=== PATIENT | male | born 1975 | race Hispanic/Latino ===

== ENCOUNTER 2020-08-29 23:10 | Inpatient (IN) | payer BC ==
[~2020-08-29] VITALS: Ht 167.6 cm; Wt 81.3 kg
[~2020-08-29 23:10] MED LIST: AEC81 PO; ATOR40TA71 PO; ERGO500014 PO; LEVO25TA54 PO; LOSA50TA64 PO; METO25TA6 PO; NITR0.4T SL
[2020-08-29] MEDS ORDERED: METOCLOPRAMIDE 10 MG/2 ML VIAL ONE (23:44)
[2020-08-29 23:51] LABS: BASOPHILS % (AUTO) 0.3 % (0.0-5.0); HEMATOCRIT 40.8 % (42-54); MEAN CORPUSCULAR HEMOGLOBIN 29.9 pg (27.0-33.0); MEAN CORPUSCULAR VOLUME 85.4 fL (79-99); MONOCYTES % (AUTO) 6.9 % (3.0-13.0); NEUTROPHILS % (AUTO) 61.5 % (40.0-77.0); PLATELET COUNT (AUTO) 223 K/uL (130-400); RED BLOOD CELL COUNT(AUTO) 4.78 MIL/uL (4.50-6.20); RED CELL DISTRIBUTION WIDTH 13.9 % (11.0-15.5); WHITE BLOOD COUNT (AUTO) 15.2 K/uL (4.8-10.8)
[2020-08-29] MEDS ORDERED: AMIODARONE 150MG VIAL ONE (23:56)
[2020-08-29] MEDS ORDERED: 0.9%NACL 50ML 50 ML IV ONE (23:57)
[2020-08-29 23:59] LABS: CREATININE 1.5 mg/dL (0.5-1.5); INR 1.05 (0.85-1.15); PROTHROMBIN TIME 11.4 SEC (9.6-11.6)
[2020-08-30] VITALS (18 sets, daily range): BP systolic 90–141; BP diastolic 60–98
[2020-08-30] LABS: PARTIAL THROMBOPLASTIN TIME 24.6 SEC (26.3-35.5)
[2020-08-30] MEDS ORDERED: AMIODARONE 150MG VIAL ONE ×2 (00:08→01:12)
[2020-08-30] MEDS ORDERED: 0.9%NACL 50ML 50 ML IV ONE (00:08)
[2020-08-30 00:14] LABS: ALBUMIN 4.2 g/dL (3.5-5.0); BILIRUBIN,TOTAL 2.2 mg/dL (0.2-1.0); MAGNESIUM 2.9 mg/dL (1.80-2.40); THYROID STIMULATING HORMONE 7.21 uIU/mL (0.36-3.74)
[2020-08-30] MEDS ORDERED: LACTATED RINGERS 1000ML 1,000 ML IV SCH (01:00)
[2020-08-30] MEDS ORDERED: MAG/ALUM/SIMETH 30 ML UDCUP PO PRN (01:00)
[2020-08-30] MEDS ORDERED: LACTULOSE 20 GM/30 ML UDCUP PO PRN (01:00)
[2020-08-30] MEDS ORDERED: DiphenhydrAMINE HCL 50 MG/ML VIAL IV PRN (01:00)
[2020-08-30] MEDS ORDERED: GUAIFENESIN-DM 200/20 MG 10 ML PO PRN (01:00)
[2020-08-30] MEDS ORDERED: ONDANSETRON 4MG INJ IV PRN (01:00)
[2020-08-30] MEDS ORDERED: ACETAMINOPHEN 325 MG TAB PO PRN ×2 (01:00)
[2020-08-30] MEDS ORDERED: NITROGLYCERIN 0.4 MG SL TAB SL PRN (01:00)
[2020-08-30] MEDS ORDERED: AMIODARONE 900MG VIAL 360 MG in DEXTROSE 5%-WATER 200 ML IV SCH (01:00)
[2020-08-30] MEDS ORDERED: DIPHENHYDRAMINE HCL 25 MG CAPSULE PO PRN (01:00)
[2020-08-30] MEDS ORDERED: 0.9% NACL 250ML 250 ML IV ONE (01:13)
[2020-08-30] MEDS ORDERED: ERGO500093 PO (02:42)
[2020-08-30] MEDS ORDERED: PROP225T3 PO (02:42)
[2020-08-30] MEDS ORDERED: CARV12.511 PO (02:42)
[2020-08-30] MEDS ORDERED: LEVO50TA11 PO (02:42)
[2020-08-30] MEDS: CEFTRIAXONE 1G VIAL IVP SCH ×2 (03:18→14:27)
[2020-08-30 03:43] LABS: BASOPHILS % (AUTO) 0.2 % (0.0-5.0); EOSINOPHILS % (AUTO) 0.8 % (0.0-8.0); HEMATOCRIT 37.2 % (42-54); LYMPHOCYTES % (AUTO) 17.1 % (21.0-51.0); MEAN CORPUSCULAR HEMOGLOBIN 28.6 pg (27.0-33.0); MEAN CORPUSCULAR HGB CONC 33.6 g/dL (32.0-36.0); MEAN CORPUSCULAR VOLUME 85.1 fL (79-99); MONOCYTES % (AUTO) 5.1 % (3.0-13.0); NEUTROPHILS % (AUTO) 76.5 % (40.0-77.0); PLATELET COUNT (AUTO) 147 K/uL (130-400); RED BLOOD CELL COUNT(AUTO) 4.37 MIL/uL (4.50-6.20); RED CELL DISTRIBUTION WIDTH 13.8 % (11.0-15.5); WHITE BLOOD COUNT (AUTO) 10.2 K/uL (4.8-10.8)
[2020-08-30 03:57] LABS: ALBUMIN 3.7 g/dL (3.5-5.0); BILIRUBIN,TOTAL 2.1 mg/dL (0.2-1.0); CREATININE 1.2 mg/dL (0.5-1.5); POTASSIUM 3.8 mmol/L (3.5-5.1); TOTAL PROTEIN, SERUM 7.1 g/dL (6.0-8.3)
[2020-08-30] MEDS ORDERED: AMIODARONE 900MG VIAL IV ONE (04:04)
[2020-08-30] MEDS: LEVOTHYROXINE 50 MCG TABLET PO SCH (06:07)
[2020-08-30] MEDS: FAMOTIDINE 20MG VIAL IV SCH ×2 (07:57→21:32)
[2020-08-30] MEDS: CARVEDILOL 12.5 MG TABLET PO SCH ×2 (07:57→21:33)
[2020-08-30] MEDS ORDERED: POTASSIUM CHLORIDE 10% ELIXIR 20 MEQ/15 ML UDCUP PO PRN (08:30)
[2020-08-30] MEDS ORDERED: KCL 20 MEQ ERTAB PO PRN (08:30)
[2020-08-30] MEDS ORDERED: POTASSIUM CHLORIDE 20MEQ/100ML 100 ML IV PRN (08:30)
[2020-08-30] MEDS ORDERED: KCL 20 MEQ ERTAB PO SCH (08:45)
[2020-08-30] MEDS ORDERED: PROPAFENONE HCL 150 MG TABLET PO SCH (09:00)
[2020-08-30 15:18] LABS: MAGNESIUM 1.9 mg/dL (1.80-2.40); POTASSIUM 3.7 mmol/L (3.5-5.1)
[2020-08-31] VITALS: BP 127/78
[2020-08-31] MEDS: CEFTRIAXONE 1G VIAL IVP SCH ×2 (01:29→14:12)
[2020-08-31 03:00] VITALS: BP 119/86
[2020-08-31] MEDS: LEVOTHYROXINE 50 MCG TABLET PO SCH (05:48)
[2020-08-31 07:54] VITALS: BP 108/72
[2020-08-31] MEDS: FAMOTIDINE 20MG VIAL IV SCH ×2 (08:52→20:48)
[2020-08-31] MEDS: CARVEDILOL 12.5 MG TABLET PO SCH ×2 (08:53→20:49)
[2020-08-31 11:58] VITALS: BP 135/86
[2020-08-31 16:00] VITALS: BP 121/86
[2020-08-31 20:00] VITALS: BP 138/85
[2020-08-31] MEDS: ATORVASTATIN 40 MG TABLET PO SCH (20:49)
[2020-08-31] MEDS ORDERED: PROPAFENONE HCL 150 MG TABLET PO SCH (21:00)
[2020-08-31] MEDS ORDERED: PROPAFENONE HCL 225 MG PO SCH (21:00)
[2020-09-01] VITALS: BP 133/77
[2020-09-01] MEDS: CEFTRIAXONE 1G VIAL IVP SCH ×2 (01:09→13:51)
[2020-09-01 04:00] VITALS: BP 117/76
[2020-09-01 04:19] LABS: BASOPHILS % (AUTO) 0.3 % (0.0-5.0); EOSINOPHILS % (AUTO) 3.1 % (0.0-8.0); HEMATOCRIT 36.7 % (42-54); LYMPHOCYTES % (AUTO) 26.6 % (21.0-51.0); MEAN CORPUSCULAR HEMOGLOBIN 28.5 pg (27.0-33.0); MEAN CORPUSCULAR HGB CONC 33.8 g/dL (32.0-36.0); MEAN CORPUSCULAR VOLUME 84.4 fL (79-99); MONOCYTES % (AUTO) 8.1 % (3.0-13.0); NEUTROPHILS % (AUTO) 61.6 % (40.0-77.0); PLATELET COUNT (AUTO) 158 K/uL (130-400); RED BLOOD CELL COUNT(AUTO) 4.35 MIL/uL (4.50-6.20); RED CELL DISTRIBUTION WIDTH 13.2 % (11.0-15.5); WHITE BLOOD COUNT (AUTO) 9.1 K/uL (4.8-10.8)
[2020-09-01 04:34] LABS: ALBUMIN 3.7 g/dL (3.5-5.0); CREATININE 1.3 mg/dL (0.5-1.5); POTASSIUM 3.8 mmol/L (3.5-5.1); TOTAL PROTEIN, SERUM 7.2 g/dL (6.0-8.3)
[2020-09-01] MEDS: LEVOTHYROXINE 50 MCG TABLET PO SCH (05:26)
[2020-09-01 07:27] VITALS: BP 133/89
[2020-09-01] MEDS: ASPIRIN 81 MG EC TAB PO SCH (09:00)
[2020-09-01] MEDS: FAMOTIDINE 20MG VIAL IV SCH ×2 (09:05→21:51)
[2020-09-01] MEDS: LOSARTAN 50 MG TABLET PO SCH (09:06)
[2020-09-01] MEDS: CARVEDILOL 12.5 MG TABLET PO SCH ×2 (09:06→21:51)
[2020-09-01] MEDS ORDERED: 0.9%NACL 1000ML 1,000 ML IV SCH (10:00)
[2020-09-01 11:21] VITALS: BP 117/75
[2020-09-01 15:52] VITALS: BP 134/102
[2020-09-01 20:06] VITALS: BP 132/95
[2020-09-01] MEDS: ATORVASTATIN 40 MG TABLET PO SCH (21:51)
[2020-09-02] VITALS (11 sets, daily range): BP systolic 106–143; BP diastolic 72–93
[2020-09-02] MEDS: CEFTRIAXONE 1G VIAL IVP SCH (02:00)
[2020-09-02 04:50] LABS: BASOPHILS % (AUTO) 0.3 % (0.0-5.0); EOSINOPHILS % (AUTO) 3.2 % (0.0-8.0); HEMATOCRIT 37.7 % (42-54); LYMPHOCYTES % (AUTO) 26.9 % (21.0-51.0); MEAN CORPUSCULAR HEMOGLOBIN 29.3 pg (27.0-33.0); MEAN CORPUSCULAR VOLUME 83.8 fL (79-99); MONOCYTES % (AUTO) 6.9 % (3.0-13.0); NEUTROPHILS % (AUTO) 62.5 % (40.0-77.0); PLATELET COUNT (AUTO) 167 K/uL (130-400); RED CELL DISTRIBUTION WIDTH 13.2 % (11.0-15.5)
[2020-09-02 05:07] LABS: ALBUMIN 3.8 g/dL (3.5-5.0); BILIRUBIN,TOTAL 1.1 mg/dL (0.2-1.0); CREATININE 1.3 mg/dL (0.5-1.5); POTASSIUM 3.8 mmol/L (3.5-5.1); TOTAL PROTEIN, SERUM 7.6 g/dL (6.0-8.3)
[2020-09-02] MEDS: LEVOTHYROXINE 50 MCG TABLET PO SCH (06:28)
[2020-09-02] MEDS: LOSARTAN 50 MG TABLET PO SCH (08:55)
[2020-09-02] MEDS: CARVEDILOL 12.5 MG TABLET PO SCH (08:55)
[2020-09-02] MEDS: ASPIRIN 81 MG EC TAB PO SCH (09:00)
[2020-09-02] MEDS ORDERED: HEPARIN 10,000 UNIT/10ML (1,000 UNIT/ML) VIAL ONE (12:32)
[2020-09-02] MEDS ORDERED: LIDOCAINE HCL 400MG/20ML VIAL ONE (12:33)
[2020-09-02] MEDS ORDERED: MIDAZOLAM HCL 1 MG/ML 2ML VIAL ONE (12:33)
[2020-09-02] MEDS ORDERED: MEPERIDINE-PF 25 MG/ML SYG ONE (12:33)
[2020-09-02] MEDS ORDERED: ISOPROTERENOL HCL 0.2 MG/ML AMP/VIAL/BAG ONE (12:54)
[2020-09-02] MEDS ORDERED: DRON400T7 PO (14:30)
[2020-09-02] MEDS ORDERED: DRONEDARONE HYDROCHLORIDE 400 MG TABLET PO SCH (14:30)
[2020-09-02] MEDS ORDERED: CARVEDILOL 12.5 MG TABLET PO SCH (21:00)
[2021-01-14] MEDS ORDERED: DRON400T7 PO (10:00)
[2021-01-14] MEDS ORDERED: LOSA25TA41 PO (10:00)
== END 2020-09-02 18:39 | disposition home or self-care (01) | DRG 273 ==
LOC: EDH 23:10 → EDHIP 08-30 00:56 → 2DH 08-30 01:46 → 4AH 08-30 18:28 → 4DH 09-02 13:15 → 4AH 09-02 13:16
PROVIDERS: ADMIT Family Medicine; ATTEND Family Medicine
PROC: 4B02XSZ Measurement of Cardiac Pacemaker, External Approach (ICD-10-PCS; principal; 2020-09-02)
PROC: 4A023FZ Measurement of Cardiac Rhythm, Percutaneous Approach (ICD-10-PCS; 2020-09-02)
PROC: 4A0234Z Measurement of Cardiac Electrical Activity, Percutaneous Approach (ICD-10-PCS; 2020-09-02)
PROC: 4A02XM4 Measurement of Cardiac Total Activity, External Approach (ICD-10-PCS; 2020-09-02)
DX: I47.2 Ventricular tachycardia (principal); I50.31 Acute diastolic (congestive) heart failure; I42.9 Cardiomyopathy, unspecified; I48.0 Paroxysmal atrial fibrillation; I48.92 Unspecified atrial flutter; E03.9 Hypothyroidism, unspecified; Z95.0 Presence of cardiac pacemaker; Z82.3 Family history of stroke; Z83.3 Family history of diabetes mellitus; Z82.49 Family history of ischemic heart disease and other diseases of the circulatory system; I11.0 Hypertensive heart disease with heart failure
CPT/HCPCS: 36415; 71045; 80053; 82550; 83735; 83880; 84132; 84443; 84484; 85025; 85610; 85730; 93005; 93306; 93356; 93620; 93623; 99156; 99157; 99291; C1730; C1894; G0378; J0282; J0696; J1644; J2175; J2250; J2765; J3490; J7050; J7120

== ENCOUNTER 2021-01-15 05:56 | Observation (INO) | payer BC ==
[2021-01-13 09:53] LABS: BASOPHILS % (AUTO) 0.4 % (0.0-5.0); EOSINOPHILS % (AUTO) 2.9 % (0.0-8.0); HEMATOCRIT 40.5 % (42-54); LYMPHOCYTES % (AUTO) 22.4 % (21.0-51.0); MEAN CORPUSCULAR HEMOGLOBIN 29.2 pg (27.0-33.0); MEAN CORPUSCULAR HGB CONC 34.6 g/dL (32.0-36.0); MEAN CORPUSCULAR VOLUME 84.6 fL (79-99); NEUTROPHILS % (AUTO) 68.1 % (40.0-77.0); PLATELET COUNT (AUTO) 190 K/uL (130-400); RED BLOOD CELL COUNT(AUTO) 4.79 MIL/uL (4.50-6.20); RED CELL DISTRIBUTION WIDTH 13.5 % (11.0-15.5); WHITE BLOOD COUNT (AUTO) 8.1 K/uL (4.8-10.8)
[2021-01-13 10:05] LABS: PROTHROMBIN TIME 10.9 SEC (9.6-11.6)
[2021-01-13 10:06] LABS: CREATININE 1.2 mg/dL (0.5-1.5); PARTIAL THROMBOPLASTIN TIME 27.6 SEC (26.3-35.5); POTASSIUM 4.3 mmol/L (3.5-5.1)
[2021-01-14 09:38] VITALS: BP 141/97
[~2021-01-15] VITALS: Ht 167.6 cm; Wt 82.5 kg
[2021-01-15] VITALS (11 sets, daily range): BP systolic 119–140; BP diastolic 68–97
[~2021-01-15 05:56] MED LIST changes: +CARV12.511 PO; +DRON400T7 PO; -ERGO500014 PO; -LEVO25TA54 PO; +LEVO50TA11 PO; +LOSA25TA41 PO; -LOSA50TA64 PO; -METO25TA6 PO; -NITR0.4T SL
[2021-01-15] MEDS ORDERED: 0.9%NACL 1000ML 1,000 ML IV ONE (06:12)
[2021-01-15] MEDS ORDERED: HEPARIN 10,000 UNIT/10ML (1,000 UNIT/ML) VIAL ONE (07:43)
[2021-01-15] MEDS ORDERED: ISOPROTERENOL HCL 0.2 MG/ML AMP/VIAL/BAG ONE (07:44)
[2021-01-15] MEDS ORDERED: MIDAZOLAM HCL 1 MG/ML 2ML VIAL ONE ×2 (07:44→09:42)
[2021-01-15] MEDS ORDERED: LIDOCAINE HCL 400MG/20ML VIAL ONE (07:44)
[2021-01-15] MEDS ORDERED: MEPERIDINE-PF 25 MG/ML SYG ONE ×2 (07:44→09:42)
[2021-01-15] MEDS ORDERED: MAG/ALUM/SIMETH 30 ML UDCUP PO PRN (21:00)
[2021-01-15] MEDS ORDERED: ASPIRIN 81 MG EC TAB PO SCH (21:00)
[2021-01-15] MEDS ORDERED: ATORVASTATIN 40 MG TABLET PO SCH (21:00)
[2021-01-15] MEDS: LOSARTAN 25 MG TABLET PO SCH (21:01)
[2021-01-15] MEDS: DRONEDARONE HYDROCHLORIDE 400 MG TABLET PO SCH (21:01)
[2021-01-15] MEDS: CARVEDILOL 12.5 MG TABLET PO SCH (21:01)
[2021-01-15] MEDS: FAMOTIDINE 20MG TAB PO SCH (22:08)
[2021-01-15] MEDS ORDERED: MORPHINE 4 MG SYG IV PRN (23:00)
[2021-01-15] MEDS ORDERED: HYDROCODONE/ACETAMINOPHEN 5/325 MG TAB PO PRN (23:00)
[2021-01-15] MEDS ORDERED: ONDANSETRON 4MG INJ IV PRN (23:00)
[2021-01-16 03:49] VITALS: BP 122/73
[2021-01-16 04:27] LABS: BASOPHILS % (AUTO) 0.2 % (0.0-5.0); EOSINOPHILS % (AUTO) 1.1 % (0.0-8.0); HEMATOCRIT 36.5 % (42-54); LYMPHOCYTES % (AUTO) 16.2 % (21.0-51.0); MEAN CORPUSCULAR HEMOGLOBIN 29.3 pg (27.0-33.0); MEAN CORPUSCULAR HGB CONC 34.8 g/dL (32.0-36.0); MEAN CORPUSCULAR VOLUME 84.3 fL (79-99); MONOCYTES % (AUTO) 8.5 % (3.0-13.0); NEUTROPHILS % (AUTO) 73.6 % (40.0-77.0); PLATELET COUNT (AUTO) 150 K/uL (130-400); RED BLOOD CELL COUNT(AUTO) 4.33 MIL/uL (4.50-6.20); RED CELL DISTRIBUTION WIDTH 13.5 % (11.0-15.5); WHITE BLOOD COUNT (AUTO) 11.3 K/uL (4.8-10.8)
[2021-01-16 04:54] LABS: CREATININE 1.1 mg/dL (0.5-1.5); MAGNESIUM 1.9 mg/dL (1.80-2.40); PHOSPHORUS 4.2 mg/dL (2.5-4.9); POTASSIUM 3.8 mmol/L (3.5-5.1); THYROID STIMULATING HORMONE 1.63 uIU/mL (0.36-3.74)
[2021-01-16] MEDS ORDERED: LEVOTHYROXINE 50 MCG TABLET PO SCH (07:30)
[2021-01-16 07:54] VITALS: BP 127/87
[2021-01-16] MEDS ORDERED: HEPARIN 5,000 UNIT VIAL SQ SCH (09:00)
[2021-01-16] MEDS: DRONEDARONE HYDROCHLORIDE 400 MG TABLET PO SCH (09:11)
[2021-01-16] MEDS: LOSARTAN 25 MG TABLET PO SCH (09:11)
[2021-01-16] MEDS: CARVEDILOL 12.5 MG TABLET PO SCH (09:12)
[2021-01-16] MEDS: FAMOTIDINE 20MG TAB PO SCH (09:12)
[2021-01-16 12:00] VITALS: BP 127/85
== END 2021-01-16 12:20 | disposition home or self-care (01) ==
LOC: DAH 05:56 → DAHIP 05:57 → 4CH 13:57
PROVIDERS: ADMIT Internal Medicine; ATTEND Internal Medicine
DX: I47.2 Ventricular tachycardia (principal); I10 Essential (primary) hypertension; I48.0 Paroxysmal atrial fibrillation; E11.65 Type 2 diabetes mellitus with hyperglycemia; E78.5 Hyperlipidemia, unspecified; E03.9 Hypothyroidism, unspecified; Z79.82 Long term (current) use of aspirin; Z95.810 Presence of automatic (implantable) cardiac defibrillator; Z86.79 Personal history of other diseases of the circulatory system
CPT/HCPCS: 36415 ×2; 80048 ×2; 80061; 83735; 84100; 84443; 85025 ×2; 85610; 85730; 93005; 93621; 93654; 96360; 96361 ×2; A4215; A4216; A4221; A4222; A4223 ×3; A4606; A4649 ×2; A4663; A6260; C1730 ×4; C1731; C1732; C1893; C1894 ×5; G0378 ×30; J1644 ×3; J2175 ×2; J2250 ×2; J3490; J7030; 99156; 99157

== ENCOUNTER → 2021-07-15 | Outpatient (CLI) | payer BC ==
[~2021-07-15] MED LIST changes: +IOHEXOL 350 MG/ML 100ML INFUS..BTL IV ONE
[2021-07-16 11:31] LABS: BASOPHILS % (AUTO) 0.3 % (0.0-5.0); EOSINOPHILS % (AUTO) 3.9 % (0.0-8.0); HEMATOCRIT 36.8 % (42-54); LYMPHOCYTES % (AUTO) 24.1 % (21.0-51.0); MEAN CORPUSCULAR HEMOGLOBIN 28.9 pg (27.0-33.0); MEAN CORPUSCULAR HGB CONC 34.5 g/dL (32.0-36.0); MEAN CORPUSCULAR VOLUME 83.6 fL (79-99); MONOCYTES % (AUTO) 6.7 % (3.0-13.0); NEUTROPHILS % (AUTO) 64.7 % (40.0-77.0); PLATELET COUNT (AUTO) 197 K/uL (130-400); RED CELL DISTRIBUTION WIDTH 13.2 % (11.0-15.5); WHITE BLOOD COUNT (AUTO) 6.8 K/uL (4.8-10.8)
[2021-07-16 11:46] LABS: POTASSIUM 3.8 mmol/L (3.5-5.1)
[2021-07-16 12:01] LABS: INR 1.02 (0.85-1.15); PROTHROMBIN TIME 11.1 SEC (9.6-11.6)
[2021-07-16 12:03] LABS: PARTIAL THROMBOPLASTIN TIME 31.6 SEC (26.3-35.5)
[2021-07-16 12:09] LABS: B-TYPE NATRIURETIC PEPTIDE 9 pg/mL (0-100)
== END | disposition home or self-care (01) ==
LOC: RAH 09:20
PROVIDERS: ATTEND Internal Medicine Cardiovascular Disease
DX: I47.2 Ventricular tachycardia (principal); Z95.0 Presence of cardiac pacemaker
CPT/HCPCS: 71275; Q9967; 36415; 80048; 83880; 85025; 85610; 85730

== ENCOUNTER 2021-07-21 08:10 | Observation (INO) | payer BC ==
[2021-07-16 11:31] LABS: BASOPHILS % (AUTO) 0.3 % (0.0-5.0); EOSINOPHILS % (AUTO) 3.9 % (0.0-8.0); HEMATOCRIT 36.8 % (42-54); LYMPHOCYTES % (AUTO) 24.1 % (21.0-51.0); MEAN CORPUSCULAR HEMOGLOBIN 28.9 pg (27.0-33.0); MEAN CORPUSCULAR HGB CONC 34.5 g/dL (32.0-36.0); MEAN CORPUSCULAR VOLUME 83.6 fL (79-99); MONOCYTES % (AUTO) 6.7 % (3.0-13.0); NEUTROPHILS % (AUTO) 64.7 % (40.0-77.0); PLATELET COUNT (AUTO) 197 K/uL (130-400); RED CELL DISTRIBUTION WIDTH 13.2 % (11.0-15.5); WHITE BLOOD COUNT (AUTO) 6.8 K/uL (4.8-10.8)
[2021-07-16 11:46] LABS: POTASSIUM 3.8 mmol/L (3.5-5.1)
[2021-07-16 12:01] LABS: INR 1.02 (0.85-1.15); PROTHROMBIN TIME 11.1 SEC (9.6-11.6)
[2021-07-16 12:03] LABS: PARTIAL THROMBOPLASTIN TIME 31.6 SEC (26.3-35.5)
[2021-07-16 12:09] LABS: B-TYPE NATRIURETIC PEPTIDE 9 pg/mL (0-100)
[2021-07-20 10:05] VITALS: BP 145/96
[~2021-07-21] VITALS: Ht 167.6 cm; Wt 83.5 kg
[2021-07-21] VITALS (19 sets, daily range): BP systolic 122–145; BP diastolic 80–104
[~2021-07-21 08:10] MED LIST changes: +0.9%NACL 1000ML 1,000 ML IV SCH; +APIX5TAB PO; -DRON400T7 PO; -IOHEXOL 350 MG/ML 100ML INFUS..BTL IV ONE
[2021-07-21] MEDS ORDERED: LIDOCAINE HCL 400MG/20ML VIAL ONE (09:25)
[2021-07-21] MEDS ORDERED: HEPARIN 10,000 UNIT/10ML (1,000 UNIT/ML) VIAL ONE ×3 (09:25→11:59)
[2021-07-21] MEDS ORDERED: SUCCINYLCHOLINE CHLORIDE 20 MG/ML 10 ML VIAL ONE (10:15)
[2021-07-21] MEDS ORDERED: LIDOCAINE HCL-MPF 1% 5ML AMP IJ ONE (10:15)
[2021-07-21] MEDS ORDERED: GLYCOPYRROLATE 1 MG/5 ML SYRINGE ONE (10:15)
[2021-07-21] MEDS ORDERED: PHENYLEPHRINE HCL 10 MG/ML 1ML VIAL IV ONE (10:15)
[2021-07-21] MEDS ORDERED: EPHEDRINE SULFATE 50 MG/ML AMPULE ONE (10:16)
[2021-07-21] MEDS ORDERED: FENTANYL CITRATE PF 50 MCG/1 ML 2ML VIAL ONE (10:16)
[2021-07-21] MEDS ORDERED: ROCURONIUM 10MG/1ML SYR 10 MG/ML ML ONE (10:16)
[2021-07-21] MEDS ORDERED: PROPOFOL 10 MG/ML 20ML VIAL IV ONE (10:16)
[2021-07-21] MEDS ORDERED: MIDAZOLAM HCL 1 MG/ML 2ML VIAL ONE (10:16)
[2021-07-21] MEDS ORDERED: NEOSTIGMINE 5MG/5ML SYR IV ONE (10:16)
[2021-07-21 11:35] LABS: ABG BASE EXCESS -2.3 mmol/L (-2.0-3.0); ABG HCO3 21.6 mmol/L (21.0-28.0); ABG OXYGEN SATURATION 99.8 % (95.0-99.0); ABG PCO2 35 mmHg (35-48)
[2021-07-21] MEDS ORDERED: ISOPROTERENOL HCL 0.2 MG/ML AMP/VIAL/BAG ONE (13:44)
[2021-07-21] MEDS ORDERED: PROTAMINE SULFATE 10 MG/ML 25ML VIAL IV ONE (14:15)
[2021-07-21] MEDS ORDERED: PANTOPRAZOLE 40 MG TAB DR PO SCH (16:30)
[2021-07-21] MEDS: SUCRALFATE 1 GM TABLET PO SCH ×2 (17:55→21:00)
[2021-07-21] MEDS: LOSARTAN 25 MG TABLET PO SCH (19:58)
[2021-07-21] MEDS: CARVEDILOL 12.5 MG TABLET PO SCH (19:58)
[2021-07-21] MEDS: APIXABAN 5 MG TABLET PO SCH (19:59)
[2021-07-21] MEDS ORDERED: ASPIRIN 81 MG EC TAB PO SCH (21:00)
[2021-07-21] MEDS ORDERED: ATORVASTATIN 40 MG TABLET PO SCH (21:00)
[2021-07-22] MEDS: SUCRALFATE 1 GM TABLET PO SCH ×2 (02:45→07:49)
[2021-07-22 03:34] VITALS: BP 142/90
[2021-07-22 05:21] LABS: BASOPHILS % (AUTO) 0.2 % (0.0-5.0); EOSINOPHILS % (AUTO) 1.2 % (0.0-8.0); LYMPHOCYTES % (AUTO) 16.5 % (21.0-51.0); MEAN CORPUSCULAR HEMOGLOBIN 29.3 pg (27.0-33.0); MEAN CORPUSCULAR HGB CONC 34.4 g/dL (32.0-36.0); MONOCYTES % (AUTO) 7.9 % (3.0-13.0); NEUTROPHILS % (AUTO) 73.8 % (40.0-77.0); PLATELET COUNT (AUTO) 166 K/uL (130-400); RED CELL DISTRIBUTION WIDTH 13.2 % (11.0-15.5); WHITE BLOOD COUNT (AUTO) 10.4 K/uL (4.8-10.8)
[2021-07-22 05:45] LABS: CREATININE 1.1 mg/dL (0.5-1.5); MAGNESIUM 1.8 mg/dL (1.80-2.40); POTASSIUM 3.1 mmol/L (3.5-5.1)
[2021-07-22] MEDS ORDERED: LEVOTHYROXINE 50 MCG TABLET PO SCH (06:30)
[2021-07-22 07:45] VITALS: BP 133/81
[2021-07-22 07:49] VITALS: BP 133/81
[2021-07-22] MEDS: LOSARTAN 25 MG TABLET PO SCH (07:49)
[2021-07-22] MEDS: APIXABAN 5 MG TABLET PO SCH (07:49)
[2021-07-22] MEDS: CARVEDILOL 12.5 MG TABLET PO SCH (07:49)
[2021-07-22] MEDS ORDERED: PANT40TA PO (08:19)
[2021-07-22] MEDS ORDERED: CARV25TA PO (08:19)
[2021-07-22] MEDS ORDERED: SUCR1ORA15 PO (08:26)
[2021-07-22] MEDS ORDERED: KCL 20 MEQ ERTAB PO SCH (08:30)
[2021-07-22] MEDS ORDERED: PANTOPRAZOLE 40 MG TAB DR PO SCH (09:00)
== END 2021-07-22 09:35 | disposition home or self-care (01) ==
LOC: DAH 08:10 → INTOOBSV 08:11 → DAH 08:11 → OBSVTOIN 08:11 → DAHIP 08:11 → UNDOADMOB 08:11 → DAHIP 17:23 → 2DH 17:23 → UNDODISOB 07-22 09:35
PROVIDERS: ADMIT Internal Medicine; ATTEND Internal Medicine
DX: I48.0 Paroxysmal atrial fibrillation (principal); I47.2 Ventricular tachycardia; E78.5 Hyperlipidemia, unspecified; E03.9 Hypothyroidism, unspecified; E78.00 Pure hypercholesterolemia, unspecified; Z95.810 Presence of automatic (implantable) cardiac defibrillator; Z79.899 Other long term (current) drug therapy; Z98.890 Other specified postprocedural states; Z79.82 Long term (current) use of aspirin
CPT/HCPCS: 36415 ×2; 80048 ×2; 82803; 82948; 83735; 83880; 85025 ×2; 85610; 85730; 93005; 93622; 93623; 93656; A4215 ×2; A4221; A4222; A4223; A4344; A4606; A4649 ×2; A4663; C1730; C1731; C1732; C1893; C1894 ×3; G0378 ×19; J0330; J1644 ×4; J2250; J2370; J2704; J2710; J2720; J3010; J3490 ×5; J7030